=== PATIENT | male | born 1980 | race Caucasian/White ===

== ENCOUNTER 2017-03-30 11:47 | Emergency (ER) | payer MEDICAID, OTHER ==
[~2017-03-30] VITALS: Ht 182.9 cm; Wt 81.6 kg
[~2017-03-30 11:47] MED LIST: ACHD5005 PO; AMOX500C2 PO; CYCL10TA9 PO; IBP800T PO; IBUP800T26 PO; PRD20T PO; TRM50T PO
[2017-03-30] MEDS ORDERED: TETANUS,DIPTH,PERTUSS P/F (BOOSTRIX) 0.5 ML VIAL IM ONE (12:00)
--- OUTSIDE RECORDS SUMMARY | 2017-03-30 12:03 | XMS REPORT ---
Author MARCO Cervantes [facility] eClinicalWorks Address Unknown Phone Unavailable Care Team Providers Care Brass Cleaner Name Role Phone MARCO VITALE CP Unavailable Allergies No Known Allergies Problems Problem Type Condition Code Onset Dates Condition Status Problem Family history of diabetes mellitus V18.0 Active Problem Need for prophylactic vaccination and inoculation, Influenza V04.81 Active Problem STATE HEP A (ADULT) DX V05.3 Active Problem Tobacco abuse Z72.0 Active Problem Low back pain M54.5 Active Problem Depression F32.9 Active Problem Rash and other nonspecific skin eruption 782.1 Active Problem Counseling on substance use and abuse V65.42 Active Problem Lumbago 724.2 Active Problem Other abnormal blood chemistry 790.6 Active Assessment Chronic viral hepatitis C B18.2 Active Problem Chronic hepatitis C without mention of hepatic coma 070.54 Active Problem Other malaise and fatigue 780.79 Active Medications No Known Medications Results No Known Results Summary Purpose eClinicalWorks Submission
--- OUTSIDE RECORDS SUMMARY | 2017-03-30 12:03 | XMS REPORT ---
Author Author MARCO VITALE [facility] Address [address] [place] [address] Care Team Providers Care Project Scheduler Name Role Phone MARCO VITALE Unavailable PROBLEMS Type Condition ICD9-CM Code [id number] Code Onset Dates Condition Status SNOMED Code Problem Depression F32.9 Active 14640346 Problem Tobacco abuse Z72.0 Active 51263609 Problem Low back pain M54.5 Active 868235321 Assessment Chronic viral hepatitis C B18.2 Nov, Active 739294336 ALLERGIES Unknown Allergies SOCIAL HISTORY No smoking Hx information available PLAN OF CARE VITAL SIGNS MEDICATIONS Medication Instructions Dosage Frequency Start Date End Date Duration Status Ibuprofen 200 MG Orally every 6 hrs 1 tablet as needed 6h Active RESULTS Name Result Date Reference Range CBC 2015-12-03 WBC 9.0 3.4-10.8 RBC 5.26 4.14-5.80 Hemoglobin 16.3 12.6-17.7 Hematocrit 47.8 37.5-51.0 MCV 91 79-97 MCH 31.0 26.6-33.0 MCHC 34.1 31.5-35.7 RDW 13.2 12.3-15.4 Platelets 219 150-379 Neutrophils 46 Lymphs 44 Monocytes 8 Eos 2 Basos 0 Immature Cells Neutrophils (Absolute) 4.1 1.4-7.0 Lymphs (Absolute) 4.0 0.7-3.1 Monocytes(Absolute) 0.7 0.1-0.9 Eos (Absolute) 0.2 0.0-0.4 Baso (Absolute) 0.0 0.0-0.2 Immature Granulocytes 0 Immature Grans (Abs) 0.0 0.0-0.1 NRBC Hematology Comments: PT/INR 2015-12-03 INR 0.9 0.8-1.2 Prothrombin Time 10.4 9.1-12.0 CMP 2015-12-03 Glucose, Serum 99 65-99 BUN 19 6-20 Creatinine, Serum 0.95 0.76-1.27 eGFR If NonAfricn Am 103 >59 eGFR If Africn Am 119 >59 BUN/Creatinine Ratio 20 8-19 Sodium, Serum 139 134-144 Potassium, Serum 3.9 3.5-5.2 Chloride, Serum 99 97-108 Carbon Dioxide, Total 21 18-29 Calcium, Serum 9.8 8.7-10.2 Protein, Total, Serum 7.6 6.0-8.5 Albumin, Serum 5.0 3.5-5.5 Globulin, Total 2.6 1.5-4.5 A/G Ratio 1.9 1.1-2.5 Bilirubin, Total 0.7 0.0-1.2 Alkaline Phosphatase, S 83 39-117 AST (SGOT) 42 0-40 ALT (SGPT) 80 0-44 AMERITOX 2015-12-03 HEP C RNA QUANT (ALLIANCE ONLY) 2015-12-03 HIV (STATE) 2015-12-03 PROCEDURES Procedure Date Ordered Related Diagnosis Body Site COMPLETE CBC W/AUTO DIFF WBC Dec 03, 2015 PROTHROMBIN TIME Dec 03, 2015 No Charge Dec 03, 2015 COMPREHEN METABOLIC PANEL Dec 03, 2015 VENIPUNCT, ROUTINE* Dec 03, 2015 HEP C RNA QUANT ([facility] ONLY) Dec 03, 2015 IMMUNIZATIONS No Known Immunizations
--- OUTSIDE RECORDS SUMMARY | 2017-03-30 12:03 | XMS REPORT ---
Author MARCO Cervantes [facility] eClinicalWorks Address Unknown Phone Unavailable Care Team Providers Care Feather Renovator Name Role Phone MARCO VITALE CP Unavailable Allergies, Adverse Reactions, Alerts Substance Reaction Event Type N.K.D.A. Info Not Available Non Drug Allergy Problems Problem Type Condition Code Onset Dates [...] Other abnormal blood chemistry 790.6 Active Assessment Tobacco abuse Z72.0 Active Assessment Depression F32.9 Active Problem Chronic hepatitis C without mention of hepatic coma 070.54 Active Assessment Low back pain M54.5 Active Problem Other malaise and fatigue 780.79 Active Medications Medication Code System Code Instructions Start Date End Date Status Dosage Cymbalta [facility] [address]-52 60 MG Orally Once a day Jun 02, 2015 1 capsule Chantix [facility] [address]-71 0.5 MG Orally Once a day X 3 days, 1/2 tab daily twice a day for 3 days. 1 tab in AM and 1/2 in PM X 3 days, 1 tab twice a day Jun 02, 2015 0.5 tablet Tylenol [facility] [address]-47 325 MG Orally every 6 hrs 1 tablet as needed Procedures Procedure Coding System Code Date Office Visit, Est Pt., Level 3 CPT-4 47871 Jun 02, 2015 Vital Signs Date/Time: Jun 02, 2015 Temperature 97.4 F Weight 179.8 lbs Height 73 in BMI 23.72 Index Blood Pressure Diastolic 76 mmHg Blood Pressure Systolic 122 mmHg Cardiac Monitoring Heart Rate 76 bpm Results No Known Results Summary Purpose eClinicalWorks Submission
--- OUTSIDE RECORDS SUMMARY | 2017-03-30 12:03 | XMS REPORT ---
Author JOÃO Joe Organization eClinicalWorks Address Unknown Phone Unavailable Care Team Providers Care Rectifying Attendant Name Role Phone JOÃO BORGES CP Unavailable Allergies No Known Allergies Problems Problem Type Condition Code Onset Dates Condition Status Problem Tobacco abuse Z72.0 Active Problem Low back pain M54.5 Active Problem Depression F32.9 Active Medications No Known Medications Results No Known Results Summary Purpose eClinicalWorks Submission
--- OUTSIDE RECORDS SUMMARY | 2017-03-30 12:03 | XMS REPORT ---
Author Author JOÃO BORGES [facility] Address [address] [place] [address] Care Team Providers Care Charger Operator Name Role Phone JOÃO BORGES Unavailable PROBLEMS Type Condition ICD9-CM Code [id number] Code Onset Dates Condition Status SNOMED Code Problem Depression F32.9 Active 28430980 Problem Tobacco abuse Z72.0 Active 08824724 Problem Low back pain M54.5 Active 270046110 ALLERGIES Unknown Allergies SOCIAL HISTORY No smoking Hx information available PLAN OF CARE VITAL SIGNS MEDICATIONS Unknown Medications RESULTS No Results PROCEDURES Procedure Date Ordered Related Diagnosis Body Site COMPLETE CBC W/AUTO DIFF WBC Mar 02, 2016 COMPREHEN METABOLIC PANEL Mar 02, 2016 VENIPUNCT, ROUTINE* Mar 02, 2016 HEP C RNA QUANT ([facility] ONLY) Mar 02, 2016 IMMUNIZATIONS No Known Immunizations
--- NOTE | 2017-03-30 12:04 | ED Upper Extremity ---
General Chief Complaint: Upper Extremity Stated Complaint: RT HAND History of Present Illness Time seen by provider: 12:01 Initial Comments The patient is a 36-year-old white male who presents with an injury to the dorsum of his right hand. 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 His hand slipped and he was punctured by a nail penetrating the ned above him. He now notes rather considerable swelling in that area. He is unable to state when his last tetanus shot might have been. Onset: just prior to arrival Pain/Injury Location: right hand Method of Injury: other (nail puncture wound) Allergies and Home Medications Allergies Coded Allergies: No Known Drug Allergies (Unverified , 10/09/12) Constitutional: see HPI EENTM: no symptoms reported Respiratory: no symptoms reported Cardiovascular: no symptoms reported Gastrointestinal: no symptoms reported Genitourinary: no symptoms reported Musculoskeletal: no symptoms reported Skin: see HPI Psychiatric/Neurological: No Symptoms Reported Past Eosjzlu-Vkszrp-Dyufym Hx Patient Social History Alcohol Use: Denies Use Recreational Drug Use: No Smoking Status: Current Everyday Smoker Type Used: Cigarettes 2nd Hand Smoke Exposure: No Recent Foreign Travel: No Contact w/Someone Who Travel: No Seasonal Allergies Seasonal Allergies: No Surgeries History of Surgeries: Yes (right inguinal hernia with mesh) Respiratory History of Respiratory Disorde: No Cardiovascular History of Cardiac Disorders: No Neurological History of Neurological Disord: Yes Reproductive System Hx Reproductive Disorders: No Sexually Transmitted Disease: No Genitourinary History of Genitourinary Disor: No Gastrointestinal History of Gastrointestinal Di: No Musculoskeletal History of Musculoskeletal Dis: Yes Musculoskeletal Disorders: Degenerate Disk Disease, Chronic Back Pain Endocrine History of Endocrine Disorders: No Cancer History of Cancer: No Psychosocial History of Psychiatric Problem: No Integumentary History of Skin or Integumenta: No Blood Transfusions History of Blood Disorders: Yes (HEP C) Family Medical History Significant Family History: No Pertinent Family Hx Physical Exam Vital Signs Capillary Refill : General Appearance: WD/WN, no apparent distress HEENT: normal ENT inspection Neck: full range of motion Comments There is an acute puncture wound over the proximal dorsal right fourth metacarpal. Distal to that there is a spongy ecchymosis consistent with a venous puncture. Progress/Results/Core Measures Results/Orders My Orders Orders - JOSÉ MIGUEL SERRANO MD Dipht,Pertuss(Acell),Tet Adult (Boostrix (03/30/17 12:00) Departure Impression Impression: Primary Impression: puncture wound right hand with hematoma Disposition: HOME, SELF-CARE Condition: Stable/Unchanged Departure-Patient Inst. Decision time for Depature: 12:07 Referrals: NO,LOCAL PHYSICIAN (PCP) Primary Care Physician Add. Discharge Instructions: All discharge instructions reviewed with patient and/or family. Voiced understanding. Use ice pack intermittently this afternoon. When possible keep right hand elevated above the height of your elbow. Do not be surprised if you see a bit of black and blue come to the skin over the next few days. If you see red streaking headed up the forearm this will be consistent with cellulitis and would require that you obtain antibiotics. JOSÉ MIGUEL SERRANO MD Mar 30, 2017 12:04
--- OUTSIDE RECORDS SUMMARY | 2017-03-30 12:04 | XMS REPORT | Continuity of Care Document ---
Author Author Counts Include [facility] Address Unknown Phone Unavailable Allergies Active Description Code Type Severity Reaction Onset Reported/Identified Relationship to Patient Clinical Status Yes No Known Drug Allergies [id number] Drug Allergy Unknown N/ A 10/09/2012 Medications Problems Date Dx Coded Attending Type Code Diagnosis Diagnosed By 10/23/2012 ABIDA ALVA MD Ot 305.1 TOBACCO USE DISORDER 10/23/2012 ABIDA ALVA MD Ot 338.29 OTHER CHRONIC PAIN 10/23/2012 ABIDA ALVA MD Ot 724.2 LUMBAGO 10/23/2012 ABIDA ALVA MD Ot 724.3 SCIATICA 10/23/2012 ABIDA ALVA MD Ot 724.4 LUMBOSACRAL NEURITIS NOS 10/23/2012 ABIDA ALVA MD Ot V15.88 HISTORY OF FALL 11/02/2012 NARAYAN CABRERA MD Ot 724.4 LUMBOSACRAL NEURITIS NOS 11/02/2012 NARAYAN CABRERA MD Ot 785.1 PALPITATIONS 11/02/2012 NARAYAN CABRERA MD Ot 790.5 ABN SERUM ENZY LEVEL NEC 11/02/2012 NARAYAN CABRERA MD Ot V58.69 OT MED,LT,CURRENT USE 11/09/2012 NARAYAN CABRERA MD Ot 305.1 TOBACCO USE DISORDER 11/09/2012 NARAYAN CABRERA MD Ot 338.29 OTHER CHRONIC PAIN 11/09/2012 NARAYAN CABRERA MD T Ot 724.2 LUMBAGO 11/09/2012 NARAYAN CABRERA MD T Ot 724.4 LUMBOSACRAL NEURITIS NOS 11/09/2012 NARAYAN CABRERA MD T Ot 724.5 BACKACHE NOS 11/24/2012 724.2 lower back pain 11/24/2012 790.6 ABNORMAL LIVER FUNCTION TEST 11/24/2012 724.2 lower back pain 11/24/2012 790.6 ABNORMAL LIVER FUNCTION TEST 11/24/2012 724.2 lower back pain 11/24/2012 790.6 ABNORMAL LIVER FUNCTION TEST 11/24/2012 BIRD ORTEGA MD 724.2 lower back pain 11/24/2012 BIRD ORTEGA MD 790.6 ABNORMAL LIVER FUNCTION TEST 11/24/2012 ABHINAV HUTCHISON DO K 724.2 lower back pain 11/24/2012 ABHINAV HUTCHISON DO 790.6 ABNORMAL LIVER FUNCTION TEST 11/24/2012 BIRD ORTEGA MD 724.2 lower back pain 11/24/2012 BIRD ORTEGA MD 790.6 ABNORMAL LIVER FUNCTION TEST 11/24/2012 IAM MCDERMOTT MARCO S 724.2 lower back pain 11/24/2012 IAM MCDERMOTT MARCO S 790.6 ABNORMAL LIVER FUNCTION TEST 11/24/2012 IAM MCDERMOTT MARCO S 724.2 lower back pain 11/24/2012 IAMANOOP MCDERMOTT, MARCO S 790.6 ABNORMAL LIVER FUNCTION TEST 12/26/2012 BIRD ORTEGA MD Ot 724.2 LUMBAGO 12/26/2012 BIRD ORTEGA MD Ot V57.1 PHYSICAL THERAPY NEC 01/11/2013 BIRD ORTEGA MD 070.54 HEPATITIS, C VIRUS - CHRONIC 01/11/2013 ABHINAV HUTCHISON DO K 070.54 HEPATITIS, C VIRUS - CHRONIC 01/11/2013 BIRD ORTEGA MD 070.54 HEPATITIS, C VIRUS - CHRONIC 01/11/2013 SAMANTHA VITALE APRNNDA S 070.54 HEPATITIS, C VIRUS - CHRONIC 01/11/2013 MARCO VITALE APRN S 070.54 HEPATITIS, C VIRUS - CHRONIC 02/02/2013 ABHINAV HUTCHISON DO 782.1 RASH AND OTHER NONSPECIFIC SKIN ERUPTION 02/02/2013 ABHINAV HUTCHISON DO V65.42 COUNSELING ON SUBSTANCE USE AND ABUSE 02/02/2013 BIRD ORTEGA MD 782.1 SKIN DISORDER EXANTHEM 02/02/2013 SHER ORTEGA MDA M V65.42 COUNSELING ON SUBSTANCE USE AND ABUSE 02/02/2013 MARCO VITALE APRN 782.1 SKIN DISORDER EXANTHEM 02/02/2013 MARCO VITALE APRN V65.42 COUNSELING ON SUBSTANCE USE AND ABUSE 02/02/2013 MARCO VITALE APRN 782.1 SKIN DISORDER EXANTHEM 02/02/2013 MARCO VITALE APRN V65.42 COUNSELING ON SUBSTANCE USE AND ABUSE 04/16/2013 DEBORAH BERRIOS, NARAYAN T Ot 845.00 SPRAIN OF ANKLE NOS 04/16/2013 DEBORAH BERRIOS, NARAYAN T Ot 959.7 LOWER LEG INJURY NOS 04/16/2013 DEBORAH BERRIOS, NARAYAN T Ot E000.8 OTHER EXTERNAL CAUSE STATUS 04/16/2013 DEBORAH BERRIOS, NARAYAN T Ot E849.0 ACCIDENT IN HOME 04/16/2013 DEBORAH BERRIOS, NARAYAN T Ot E888.9 FALL NOS 01/18/2014 EMELY SKINNER, DALY K Ot 305.1 TOBACCO USE DISORDER 01/18/2014 EVE HAN DOA K Ot 780.79 OTH MALAISE FATIGUE 01/18/2014 DALY HAN DO K Ot V12.09 PERSONAL HISTORY OTH SPEC INFECT MADHU 03/11/2014 MARCO VITALE APRN 780.79 FATIGUE 03/11/2014 MARCO VITALE APRN V04.81 FLU SHOT 03/11/2014 MARCO VITALE APRN V05.3 TWINRIX DX 03/11/2014 MARCO VITALE APRN V18.0 FAMILY HISTORY OF DIABETES MELLITUS 09/19/2015 CORNELL SPENCER PROCESS CHEESE COOKER Ot M54.5 LOW BACK PAIN 09/24/2015 CORNELL SPENCER PROCESS CHEESE COOKER Ot M54.5 LOW BACK PAIN 11/25/2015 CORNELL SPENCER PROCESS CHEESE COOKER Ot M54.5 LOW BACK PAIN 01/09/2016 CORNELL SPENCER PROCESS CHEESE COOKER Ot M54.5 LOW BACK PAIN 01/10/2016 CORNELL SPENCER PROCESS CHEESE COOKER Ot M54.5 LOW BACK PAIN 02/18/2016 CORNELL SPENCER Ot M54.5 LOW BACK PAIN 02/23/2016 CORNELL SPENCER Ot M54.5 LOW BACK PAIN Procedures Code [place] [address] ROUTINE VENIPUNCTURE 12/11/2012 73062 INR (IN HOUSE) 83254 CBC 12/11/2012 58207 HEP C PCR QUANT W/VINNIE 12/19/2012 35540 GENOTYPE DNA HEPATITIS C 12/21/2012 [facility] 01/15/2013 20353 AMERITOX 2013 Results Encounters ACCT No. Visit Date/Time Discharge Status Pt. Type Provider Facility Loc./Unit Complaint [id number] 03/11/2014 15:43:00 03/11/2014 23: 59:59 CLS Outpatient MARCO VITALE APRN [id number] 02/09/2014 10:28:00 02/09/2014 23: 59:59 CLS Outpatient MARCO VITALE APRN [id number] 02/07/2013 16:46:00 02/07/2013 23: 59:59 CLS Outpatient BIRD ORTEGA MD [id number] 02/02/2013 15:48:00 02/02/2013 23: 59:59 CLS Outpatient ABHINAV HUTCHISON DO [id number] 01/11/2013 14:37:00 01/11/2013 23: 59:59 CLS Outpatient BIRD ORTEGA MD [id number] 12/11/2012 12:26:00 Document Registration [id number] 12/11/2012 09:52:00 Document Registration [id number] 11/24/2012 09:16:00 Document Registration [id number] 02/23/2016 12:37:00 2015 14:08:00 DIS Outpatient YASMEEN RICHARDS MD [facility] CARD DISC DISORDER /RADICULOPATHY LUMBAR [id number] 09/18/2015 13:59:00 2015 23:59:59 CLS Outpatient CORNELL SPENCER [facility] RAD LOW BACK PAIN [id number] 01/18/2014 10:36:00 2013 13:04:00 DIS Emergency DALY HAN DO [facility] ER WEAKNESS [id number] 04/16/2013 11:35:00 2012 14:17:00 DIS Emergency NARAYAN CABRERA MD [facility] ER FALL, MULTIPLE INJURIES [id number] 12/07/2012 09:05:00 2012 14:27:00 DIS Outpatient BIRD ORTEGA MD [facility] REHAB CHRONIC LOW BACK PAIN [id number] 11/09/2012 12:10:00 2012 14:34:00 DIS Emergency NARAYAN CABRERA MD [facility] ER CHRONIC PAIN [id number] 11/02/2012 16:59:00 2012 22:37:00 DIS Emergency NARAYAN CABRERA MD [facility] ER MULTIPLE COMPLAINTS [id number] 10/23/2012 17:51:00 2012 19:25:00 DIS Emergency ABIDA ALVA MD [facility] ER LOWER BACK PAIN, TOE NUMBNESS [id number] 10/19/2012 17:24:00 2012 23:59:59 CLS Outpatient [id number] 10/09/2012 18:43:00 2012 19:33:00 DIS Emergency
[2017-03-30 12:38] VITALS: BP 135/88
== END 2017-03-30 12:38 | disposition home or self-care (01) ==
LOC: EDUNIT# 11:47 → ER 11:49
DX: S61.431A Puncture wound without foreign body of right hand, initial encounter (principal); F17.210 Nicotine dependence, cigarettes, uncomplicated; Z23 Encounter for immunization; W45.0XXA Nail entering through skin, initial encounter
CPT/HCPCS: 90715